=== PATIENT | female | born 1960 | race African-American/Black ===

== ENCOUNTER 2018-02-15 11:46 | Emergency (ER) | payer BC ==
[~2018-02-15] VITALS: Ht 162.6 cm; Wt 82.0 kg
[2018-02-15 11:56] VITALS: BP_SYST 178; BP_SYST 200; BP_DIAS 79; BP_DIAS 94; PULSE 80; RESP 18; TEMP 98.2; O2SAT 100
[2018-02-15 12:00] VITALS: BP 187/87; PULSE 86; RESP 16; O2SAT 98
[2018-02-15] MEDS ORDERED: LISI10TA3 PO (12:08)
[2018-02-15] MEDS ORDERED: METF-382 PO (12:08)
[2018-02-15] MEDS ORDERED: GLIP5TAB8 PO (12:08)
[2018-02-15] MEDS ORDERED: LISINOPRIL 10 MG TAB PO ONE (12:15)
[2018-02-15 12:30] VITALS: BP 148/70; PULSE 80; RESP 16; O2SAT 97
--- NOTE | 2018-02-15 12:48 | PD ---
HPI Chief Complaint: Headache Time Seen by Provider: 12:06 Travel History International Travel<30 days: No Contact w/Intl Traveler<30days: No Traveled to known affect area: No History of Present Illness HPI 58 y/o female presents with intermittent frontal headaches. She states she checked her pressure when she first got up and was concerned because it was low. She states she recently was at [facility] this week because her pressure was high and I increased her lisinopril to 10 mg. She states she has not taken any of her medication today given the initial reading of her blood pressure. She states she did not recheck her blood pressure. She denies any numbness, weakness, chest pain or other concurrent complaints. She states she just had her blood work checked at that hospital and it was all normal. She denies specific modifying factors. [facility] Past Medical History Diabetes: Yes Patient Takes Glucophage: No Hypertension: Yes Social History Alcohol Use: No Tobacco Use: No Substance Use: No Allergies-Medications (Allergen,Severity, Reaction): Coded Allergies: No Known Allergies (Unverified , 02/15/18) Reported Meds & Prescriptions Reported Meds & Active Scripts Active Reported Glipizide 5 Mg Tab 5 Mg PO DAILY Take 30 minutes before a meal Lisinopril 10 Mg Tab 10 Mg PO DAILY Metformin ER (Metformin HCl) 1,000 Mg Yomaira 1,000 Mg PO BID With evening meal Review of Systems Except as stated in HPI: all other systems reviewed are Neg Physical Exam Narrative GENERAL: 58 y/o female in no apparent distress SKIN: Focused skin assessment warm/dry. HEAD: Atraumatic. Normocephalic. EYES: Pupils equal and round. No scleral icterus. No injection or drainage. ENT: No nasal bleeding or discharge. Mucous membranes pink and moist. NECK: Trachea midline. No JVD. no meningeal signs CARDIOVASCULAR: Regular rate and rhythm. RESPIRATORY: No accessory muscle use. Clear to auscultation. Breath sounds equal bilaterally. GASTROINTESTINAL: Abdomen soft, non-tender, nondistended. MUSCULOSKELETAL: No obvious deformities. No clubbing. No cyanosis. No edema. NEUROLOGICAL: Awake and alert. No obvious cranial nerve deficits. Motor grossly within normal limits. Normal speech. PSYCHIATRIC: Appropriate mood and affect; insight and judgment normal. Data Data Last Documented VS Vital Signs Date Time Temp Pulse Resp B/P (MAP) Pulse Ox O2 Delivery O2 Flow Rate FiO2 5/5/18 13:19 74 18 151/71 (97) 97 Room Air 02/15/18 11:[address] Brain W/O Iv Contrast(Rout) (02/15/18 ) Lisinopril (Prinivil) (02/15/18 12:15) Acetaminophen (Tylenol) (02/15/18 14:15) Ed Discharge Order (02/15/18 14:24) MDM Medical Decision Making Medical Screen Exam Complete: Yes Emergency Medical Condition: Yes Medical Record Reviewed: Yes (pmh confirmed) Interpretation(s) Last [address] 02/15/18 0000 Signed Impressions: Service Date/Time: Thursday, February 15, 2018 14:01 - CONCLUSION: No acute intracranial findings. Perry Beltran MD Differential Diagnosis hypertension, tension, intracranial.... Narrative Course will check ct brain and dose with home blood pressure medication and reeval, patient agrees to plan, given recent normal lab work ct brain no acute, Patient denies any new complaints and states that they are feeling better. all questions answered. Patient knows that follow up is incumbent on them and to return to the emergency room immediately if new or worsening symptoms develop. Patient given strict return precautions, vitals reviewed and are normal, agrees to further workup as an outpatient. Diagnosis Primary Impression: Cephalgia Qualified Codes: R51 - Headache Patient Instructions: General Instructions Additional Instructions: tylenol as needed, keep a blood pressure log, follow with primary saturday Med/Other Pt SpecificInfo: No Change to Meds Disposition: 01 DISCHARGE HOME Condition: Stable Yaz Vigil MD February 15, 2018 12:48
[2018-02-15 13:19] VITALS: BP 151/71; PULSE 74; RESP 18; O2SAT 97
--- NOTE | 2018-02-15 14:10 | RADRPT ---
EXAM DATE/TIME: 02/15/2018 14:01 [place] COMPARISON: No previous studies available for comparison. INDICATIONS : Cephalgia, low blood pressue. RADIATION DOSE: 37.46 CTDIvol (mGy) MEDICAL HISTORY : Hypertension. diabetes SURGICAL HISTORY : None. ENCOUNTER: Initial ACUITY: 1 day PAIN SCALE: 3/10 LOCATION: cranial TECHNIQUE: Multiple contiguous axial images were obtained of the head. Using automated exposure control and adj ustment of the mA and/or kV according to patient size, radiation dose was kept as low as reasonably a chievable to obtain optimal diagnostic quality images. DICOM format image data is available electro nically for review and comparison. FINDINGS: CEREBRUM: The ventricles are normal for age. No evidence of midline shift, mass lesion, hemorrhage or acute in farction. No extra-axial fluid collections are seen. POSTERIOR FOSSA: The cerebellum and brainstem are intact. The 4th ventricle is midline. The cerebellopontine angle i s unremarkable. EXTRACRANIAL: The visualized portion of the orbits is intact. SKULL: The calvaria is intact. No evidence of skull fracture. CONCLUSION: No acute intracranial findings. Perry Beltran MD on February 15, 2018 at 14:06 Board Certified Radiologist. This report was verified electronically.
[2018-02-15] MEDS ORDERED: ACETAMINOPHEN 325 MG TAB PO ONE (14:15)
== END 2018-02-15 14:50 | disposition home or self-care (01) ==
LOC: NEPE 11:46
DX: R51 Headache (principal); E11.9 Type 2 diabetes mellitus without complications; I10 Essential (primary) hypertension
CPT/HCPCS: 70450